=== PATIENT | female | born 1975 | race Caucasian/White ===

== ENCOUNTER 2017-05-08 02:00 | Emergency (ER) | payer OTHER ==
[~2017-05-08 02:00] MED LIST: CEPH500T PO; PRED20TA PO; VALA10005 PO
[2017-05-08] MEDS ORDERED: KETOROLAC 60 MG/2 ML VIAL. IM ONE (03:52)
[2017-05-08] MEDS ORDERED: PHENAZOPYRIDINE 200 MG TABLET. ONE (03:52)
[2017-05-08] MEDS: KETOROLAC 60 MG/2 ML VIAL. IM ONE (03:53)
[2017-05-08] MEDS: PHENAZOPYRIDINE 200 MG TABLET. PO ONE (03:53)
[2017-05-08 03:54] LABS: BILIRUBIN,URINE NEG (NEG); CLARITY,URINE CLEAR; COLOR,URINE YELLOW; GLUCOSE,URINE NEG (NEG); NITRITE,URINE NEG (NEG); UROBILINOGEN,URINE 0.2 mg/dL (0.2 mg/dL)
[2017-05-08 03:55] LABS: BACTERIA,URINE FEW /HPF (0-FEW); RBC,URINE 0 /HPF (0-2); SQUAMOUS EPITHELIAL CELL,UR FEW /LPF; U PREG PATIENT NEGATIVE (NEG); WBC,URINE OCC /HPF (0-4)
--- NOTE | 2017-05-08 05:03 | PHYS DOC ---
General Chief Complaint: FLANK PAIN Stated Complaint: ABD/BACK PAIN Time Seen by MD: 04:42 Source: patient Exam Limitations: no limitations Problems: History of Present Illness Initial Comments Patient is a 41-year-old female who comes in the ED complaining of lower abdominal and bilateral flank pain. Patient states she's had some urinary frequency and hesitancy, she denies any trauma or strenuous activity. No leg weakness no saddle anesthesia and no incontinence. No midline back pain no fever chills sweats or myalgias. Symptoms described as moderate worse with certain movements improved with rest. Patient drove her roommates car here and refuses medications that will not allow her to drive home. She had a very prolonged ED course as a critical patient consumed the ED staff for a considerable length of time. Most of the history was initially obtained by the nurse around her and I ordered studies and medications initially from the trauma room as I managed a critical patient. Timing/Duration: 24 hours Severity: moderate Modifying Factors: worse with movement, improves with rest Associated Symptoms: other Allergies: Coded Allergies: No Known Drug Allergies (Unverified , 07/11/16) Past Medical History Medical History: no pertinent history Surgical History: noncontributory Social History Smoker: cigarettes Alcohol: none Drugs: none Review of Systems Constitutional: denies chills, denies diaphoresis, denies fever, denies malaise Respiratory: denies cough, denies shortness of breath Cardiovascular: denies chest pain, denies palpitations Gastrointestinal: see HPI, denies diarrhea, denies nausea, denies vomiting Genitourinary: see HPI Musculoskeletal: see HPI Psychiatric/Neurological: denies headache, denies numbness, denies paresthesia , denies weakness Hematologic/Lymphatic: denies blood clots, denies easy bleeding, denies easy bruising Physical Exam General Appearance: WD/WN, mild distress Ear, Nose, Throat: hearing grossly normal, normal ENT inspection Neck: non-tender Respiratory: normal breath sounds, no respiratory distress Cardiovascular: normal peripheral pulses, regular rate, rhythm Gastrointestinal: soft (mild suprapubic tenderness no rebound guarding or masses negative Johnson negative McBurney bowel sounds normal) Rectal: deferred Back: no vertebral tenderness, CVA tenderness (R), CVA tenderness (L) Extremities: non-tender, normal inspection 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 Pt remains with severe flank pain, pt agrees to lab eval and CT but insists she has roommate's car and must drive home so refuses pain meds other than that already given, toradol/pyridium. Pt with very prolonged ED course initially due to my delay, now due to need for further lab/CT eval. PATIENT: KJ HYATT ACCOUNT: [id number] : 1975 LOCATION: ER AGE: 41 SEX: F EXAM STATUS: REG ER ORD. PHYSICIAN: VIRA WALKER DO REASON: flank pain r/o stone PROCEDURE: CT ABDOMEN PELVIS WO CONTRAST CT abdomen and pelvis without contrast HISTORY: Bilateral flank pain. TECHNIQUE: Helical noncontrast CT imaging of the abdomen and pelvis was acquired. Abdomen findings: Segment 4 the liver demonstrates a 4 mm indeterminate hypodense lesion too small to characterize. Lung bases and bones are unremarkable. Small sliding hiatal hernia gastroesophageal junction and gastric cardia. Gallbladder, pancreas, kidneys, adrenals and spleen are unremarkable. No nephroureterolithiasis, hydronephrosis or perinephric stranding. GI tract including the appendix demonstrates no obstruction or inflammatory change. No abdominal fluid. Pelvis findings: Contraceptive fallopian tubal occlusive devices. No bladder calculi. Trace dependent pelvic fluid. Rectum and bones are unremarkable. IMPRESSION: 1. No acute process. Appendix is negative. No nephroureterolithiasis or hydronephrosis. 2. Small hiatal hernia. Exposure: One or more of the following individualized dose reduction techniques were utilized for this examination: 1. Automated exposure control 2. Adjustment of the mA and/or kV according to patient size 3. Use of iterative reconstruction technique Electronically signed by: Moncho Duckworth MD (05/08/2017 5:18 AM) [place] [id number] DICTATED AND SIGNED BY: MONCHO DUCKWORTH MD DATE: 05/08/17 0510 CC: PATRICIA VELAZQUEZ; VIRA WALKER DO ~ negative labs unremarkable. Patient was advised to stop smoking. She expressed agreement and understanding with treatment plan see departure for instructions. Departure Time of Disposition: 05:59 Disposition: 01 HOME, SELF-CARE Diagnosis: Back pain NOS Condition: STABLE Patient Instructions: Back Pain, Adult, Stdl-ve-Oxov Additional Instructions: Off work thru Tuesday, note given. Rest, keep activity to "pain-free." OTC ibuprofen for baseline pain. A tylenol #3 start pack was dispensed, take 1 every 6 hours for severe pain. Rx: norco 5mg #15 Follow up with Patricia Stern in 1-2 days for recheck. Return to ED with new or changing symptoms. VIRA WALKER DO May 08, 2017 05:03
[2017-05-08] MEDS ORDERED: IV NORMAL SALINE 50ML 50 ML ONE (05:04)
[2017-05-08] MEDS ORDERED: cefTRIAXone SODIUM 1 GM VIAL IV ONE (05:04)
[2017-05-08 05:21] LABS: BASO % 0 % (0-3); EOS # 0.3 x10^3/uL (0.0-0.7); EOS % 3 % (0-3); HEMATOCRIT 41.9 % (36.0-47.0); HEMOGLOBIN 14.6 g/dL (12.0-15.5); LYMPH % 29 % (24-48); MEAN CORPUSCULAR HEMOGLOBIN 32 pg (25-35); MEAN CORPUSCULAR HGB CONC 35 g/dL (31-37); MEAN CORPUSCULAR VOLUME 91 fL (79-100); MONO # 0.5 x10^3/uL (0.0-1.1); MONO % 5 % (0-9); NEUT # 6.5 x10^3uL (1.8-7.7); NEUT % 62 % (31-73); PLATELET COUNT 205 x10^3/uL (140-400); RED BLOOD COUNT 4.61 x10^6/uL (3.50-5.40); RED CELL DISTRIBUTION WIDTH 13.3 % (11.5-14.5); WHITE BLOOD COUNT 10.5 x10^3/uL (4.0-11.0)
--- NOTE | 2017-05-08 05:21 | RAD ---
CT abdomen and pelvis without contrast HISTORY: Bilateral flank pain. TECHNIQUE: Helical noncontrast CT imaging of the abdomen and pelvis was acquired. Abdomen findings: Segment 4 the liver demonstrates a 4 mm indeterminate hypodense lesion too small to characterize. Lung bases and bones are unremarkable. Small sliding hiatal hernia gastroesophageal junction and gastric cardia. Gallbladder, pancreas, kidneys, adrenals and spleen are unremarkable. No nephroureterolithiasis, hydronephrosis or perinephric stranding. GI tract including the appendix demonstrates no obstruction or inflammatory change. No abdominal fluid. Pelvis findings: Contraceptive fallopian tubal occlusive devices. No bladder calculi. Trace dependent pelvic fluid. Rectum and bones are unremarkable. IMPRESSION: 1. No acute process. Appendix is negative. No nephroureterolithiasis or hydronephrosis. 2. Small hiatal hernia. Exposure: One or more of the following individualized dose reduction techniques were utilized for this examination: 1. Automated exposure control 2. Adjustment of the mA and/or kV according to patient size 3. Use of iterative reconstruction technique Electronically signed by: Aron Martinez MD (05/08/2017 5:18 AM) [facility]
[2017-05-08 05:52] LABS: ALBUMIN 4.3 g/dL (3.4-5.0); CALCIUM 9.3 mg/dL (8.5-10.1); CREATININE 0.7 mg/dL (0.6-1.0); DIRECT BILIRUBIN 0.2 mg/dL (0.0-0.2); GFR 93.2; POTASSIUM 3.9 mmol/L (3.5-5.1); TOTAL BILIRUBIN 0.7 mg/dL (0.2-1.0); TOTAL PROTEIN 7.5 g/dL (6.4-8.2)
[2017-05-08] MEDS ORDERED: HYDR-971 PO (05:59)
[2017-05-08] MEDS: ACETAMINOPHEN/CODEINE 300/30MG 4TABLET STARTPACK. PO ONE (06:11)
[2017-05-08 06:13] VITALS: BP 129/71
== END 2017-05-08 06:13 | disposition home or self-care (01) ==
LOC: ER 02:00
DX: M54.89 Other dorsalgia (principal); R10.31 Right lower quadrant pain; R10.32 Left lower quadrant pain; F17.210 Nicotine dependence, cigarettes, uncomplicated
CPT/HCPCS: 36415; 74176; 80048; 80076; 81001; 81025; 83690; 85025; 96365; 96372; J0696; J1885; 99285-25

== ENCOUNTER → 2017-05-11 | Outpatient (CLI) | payer OTHER ==
[2017-05-08 06:13] VITALS: BP 129/71
[~2017-05-11] MED LIST changes: +HYDR-971 PO
--- NOTE | 2017-05-11 09:31 | RAD ---
Indication low back pain. AP and lateral views of the lumbar spine were obtained as well as a coned view and 2 oblique views. Vertebral height alignment and disc spaces are unremarkable. No acute bony finding is seen. There is a possible unilateral pars defect at L5. The finding is not certain. IMPRESSION: No acute or significant finding seen on plain films of the lumbar spine
== END | disposition home or self-care (01) ==
LOC: DXRADRC 09:17
PROVIDERS: ATTEND Physician Assistant Medical
DX: M54.5 Low back pain (principal)
CPT/HCPCS: 72110

== ENCOUNTER 2019-03-30 22:08 | Emergency (ER) | payer MEDICAID, OTHER ==
[~2019-03-30] VITALS: Ht 167.6 cm; Wt 81.6 kg
[~2019-03-30 22:08] MED LIST changes: +HYDR-3165 PO; -HYDR-971 PO
--- NOTE | 2019-03-30 22:13 | ED.ADGEN ---
Past History Past Medical History: No Pertinent History Past Surgical History: Tonsillectomy Alcohol Use: None Drug Use: None Adult General Chief Complaint Chief Complaint "Everyone in the house is sick.. I get sick.. By sister's kids sick.. She sick.. Everyone sick since beginning school... " Got a sore throat, ears hurt on the left..." Sometimes ear makes me feel dizzy...'" HPI HPI Patient is a 43 year old female who presents with above complaints of sore throat, ear ache and dizzy x 4 days. Follow-up fasting numbers are sick with upper respiratory infection. No recent travel. Patient does smoke. No history immunosuppression. Review of Systems Review of Systems Constitutional: Denies fever or chills [] Eyes: Denies change in visual acuity, redness, or eye pain [] HENT: Complains of nasal congestion, sore throat []and left ear pain Respiratory: Denies cough or shortness of breath [] Cardiovascular: No additional information not addressed in HPI [] GI: Denies abdominal pain, nausea, vomiting, bloody stools or diarrhea [] : Denies dysuria or hematuria [] Musculoskeletal: Denies back pain or joint pain [] Integument: Denies rash or skin lesions [] Neurologic: Denies headache, focal weakness or sensory changes [] Endocrine: Denies polyuria or polydipsia [] All other systems were reviewed and found to be within normal limits, except as documented in this note. Family History Family History Multiple family members ill with upper respiratory infection Current Medications Current Medications Current Medications Medications (Trade) Dose Ordered Sig/[facility] Start Time Stop Time Status Last Admin Dose Admin Ibuprofen (Motrin) 600 mg 1X ONCE 03/30/19 22:30 03/30/19 22:31 DC 03/30/19 22:34 600 MG Prednisone (Prednisone) 50 mg 1X ONCE 03/30/19 22:30 03/30/19 22:31 DC 03/30/19 22:34 50 MG Allergies Allergies Allergies Coded Allergies Type Severity Reaction Last Updated Verified No Known Drug Allergies 07/11/16 No Physical Exam Physical Exam Constitutional: Well developed, well nourished, no acute distress, non-toxic appearance. [] HENT: Normocephalic, atraumatic, bilateral external ears normal, TM on left has fluid, oropharynx moist, injected pharynx no oral exudates, nose swollen turbinates and clear rhinorrhea] Eyes: PERRLA, EOMI, conjunctiva normal, no discharge. [] Neck: Normal range of motion, no tenderness, supple, no stridor. [] Cardiovascular:Heart rate regular rhythm, no murmur [] Lungs & Thorax: Bilateral breath sounds clear to auscultation [] Abdomen: Bowel sounds normal, soft, no tenderness, no masses, no pulsatile masses. [] Skin: Warm, dry, no erythema, no rash. [] Back: No tenderness, no CVA tenderness. [] Extremities: No tenderness, no cyanosis, no clubbing, ROM intact, no edema. [] Neurologic: Alert and oriented X 3, normal motor function, normal sensory function, no focal deficits noted. [] Psychologic: Affect anxious, judgement normal, mood normal. [] Current Patient Data Vital Signs Vital Signs Date Time Temp Pulse Resp B/P (MAP) Pulse Ox O2 Delivery O2 Flow Rate FiO2 03/30/19 22:25 98.1 71 18 96 Room Air Lab Results Laboratory Tests Test 03/30/19 22:30 03/30/19 22:40 03/30/19 22:56 Group A Streptococcus Rapid Negative (NEGATIVE) Urine Collection Type Unknown Urine Color Yellow Urine Clarity Clear Urine pH 5.5 Urine Specific [place] 1.025 Urine Protein Neg (NEG-TRACE) Urine Glucose (UA) Neg mg/dL (NEG) Urine Ketones (Stick) 15 mg/dL (NEG) Urine Blood Neg (NEG) Urine Nitrite Neg (NEG) Urine Bilirubin Neg (NEG) Urine Urobilinogen Dipstick 1 mg/dL (0.2 mg/dL) Urine Leukocyte Esterase Neg (NEG) Urine RBC 0 /HPF (0-2) Urine WBC 0 /HPF (0-4) Urine Squamous Epithelial Cells Mod /LPF Urine Bacteria Few /HPF (0-FEW) Urine Mucus Marked /LPF Urine Opiates Screen Neg (NEG) Urine Methadone Screen Neg (NEG) Urine Barbiturates Neg (NEG) Urine Phencyclidine Screen Neg (NEG) Urine Amphetamine/Methamphetamine Pos (NEG) Urine Benzodiazepines Screen Neg (NEG) Urine Cocaine Screen Neg (NEG) Urine Cannabinoids Screen Neg (NEG) Urine Ethyl Alcohol Neg (NEG) POC Urine HCG, Qualitative hcg negative (Negative) EKG EKG [] Radiology/Procedures Radiology/Procedures [] Course & Med Decision Making Course & Med Decision Making Pertinent Labs and Imaging studies reviewed. (See chart for details) Gargle with Listerine 4 times a day. Take Tylenol or ibuprofen for discomfort. Liquid up ibuprofen may offer some topical relief to sore throat. Take Benadryl 25 mg to 50 mg 4 times a day for congestion and drainage. Stop smoking. Return i f Any concerns [] Final Impression Final Impression 1. Upper respiratory infection[] 2. Viral Syndrome Dragon Disclaimer Dragon Disclaimer This electronic medical record was generated, in whole or in part, using a voice recognition dictation system. Dragon Disclaimer This chart was dictated in whole or in part using Voice Recognition software in a busy, high-work load, and often noisy Emergency Department environment. It may contain unintended and wholly unrecognized errors or omissions. ALL CARDENAS MD Mar 30, 2019 22:13
[2019-03-30 22:25] VITALS: BP 135/79
[2019-03-30] MEDS ORDERED: predniSONE 10 MG TABLET PO ONE (22:30)
[2019-03-30] MEDS ORDERED: IBUPROFEN 600 MG TABLET. PO ONE (22:30)
[2019-03-30 23:13] LABS: AMPHETAMINE/METHAMPHETAMINE POS (NEG); BARBITURATES NEG (NEG); BENZODIAZEPINES NEG (NEG); CANNABINOIDS NEG (NEG); COCAINE NEG (NEG); METHADONE NEG (NEG); OPIATES NEG (NEG); PHENCYCLIDINE NEG (NEG)
[2019-03-30 23:23] LABS: CLARITY,URINE CLEAR; COLOR,URINE YELLOW; GLUCOSE,URINE NEG (NEG)
[2019-03-30 23:24] LABS: BACTERIA,URINE FEW /HPF (0-FEW); BILIRUBIN,URINE NEG (NEG); NITRITE,URINE NEG (NEG); RBC,URINE 0 /HPF (0-2); SQUAMOUS EPITHELIAL CELL,UR MOD /LPF; UROBILINOGEN,URINE 1 mg/dL (0.2 mg/dL); WBC,URINE 0 /HPF (0-4)
== END 2019-03-30 23:25 | disposition home or self-care (01) ==
LOC: ER 22:08
DX: B34.9 Viral infection, unspecified (principal); J06.9 Acute upper respiratory infection, unspecified; R42 Dizziness and giddiness; Z90.89 Acquired absence of other organs
CPT/HCPCS: 36415; 80307; 81001; 81025; 87070; 87880; 99284; J7512

== ENCOUNTER 2020-06-14 12:51 | Emergency (ER) | payer MEDICAID ==
[~2020-06-14] VITALS: Ht 165.1 cm; Wt 79.5 kg
--- NOTE | 2020-06-14 13:50 | RAD ---
EXAM: CT HEAD WITHOUT CONTRAST. HISTORY: Headache, right weakness. TECHNIQUE: Computed tomography of the head was performed without intravenous contrast. One or more of the following individualized dose reduction techniques were utilized for this examination: 1. Automated exposure control. 2. Adjustment of the mA and/or kV according to patient size. 3. Use of iterative reconstruction technique. COMPARISON: None. FINDINGS: There is no intracranial hemorrhage. A focus of hypoattenuation within the left posterior frontal white matter measures 1.3 cm. The ventricles are normal in size and position. The visualized paranasal sinuses appear clear. The orbits are unremarkable. The temporal bones are unremarkable. The calvarium reveals no suspicious lesions. IMPRESSION: 1. A 1.3 cm hypoattenuating lesion in the left posterior frontal white matter may represent a subacute/chronic infarct, or possibly a demyelinating lesion. MRI brain with and without contrast is recommended if the diagnosis remains unclear. Electronically signed by: Bouchra Marquez MD (06/14/2020 1:47 PM) [id number]
[2020-06-14 13:52] LABS: BASO % 1 % (0-3); EOS # 0.1 x10^3/uL (0.0-0.7); EOS % 2 % (0-3); HEMATOCRIT 44.8 % (36.0-47.0); LYMPH # 2.1 x10^3/uL (1.0-4.8); LYMPH % 25 % (24-48); MEAN CORPUSCULAR HEMOGLOBIN 31 pg (25-35); MEAN CORPUSCULAR HGB CONC 34 g/dL (31-37); MEAN CORPUSCULAR VOLUME 93 fL (79-100); MONO # 0.7 x10^3/uL (0.0-1.1); MONO % 8 % (0-9); NEUT # 5.4 x10^3uL (1.8-7.7); NEUT % 65 % (31-73); PLATELET COUNT 175 x10^3/uL (140-400); RED BLOOD COUNT 4.81 x10^6/uL (3.50-5.40); RED CELL DISTRIBUTION WIDTH 13.2 % (11.5-14.5); WHITE BLOOD COUNT 8.4 x10^3/uL (4.0-11.0)
[2020-06-14 13:55] LABS: CALCIUM 9.4 mg/dL (8.5-10.1); CREATININE 0.8 mg/dL (0.6-1.0); GFR 78.7; POTASSIUM 3.7 mmol/L (3.5-5.1)
[2020-06-14 14:01] LABS: ALBUMIN 4.2 g/dL (3.4-5.0); ALBUMIN/GLOBULIN RATIO 1.4 (1.0-1.7); TOTAL BILIRUBIN 0.9 mg/dL (0.2-1.0); TOTAL PROTEIN 7.3 g/dL (6.4-8.2)
[2020-06-14 14:04] LABS: BACTERIA,URINE 0 /HPF (0-FEW); BILIRUBIN,URINE NEG (NEG); CLARITY,URINE CLEAR; COLOR,URINE YELLOW; GLUCOSE,URINE NEG (NEG); NITRITE,URINE NEG (NEG); RBC,URINE RARE /HPF (0-2); SQUAMOUS EPITHELIAL CELL,UR OCC /LPF; UROBILINOGEN,URINE 0.2 mg/dL (0.2 mg/dL); WBC,URINE 0 /HPF (0-4)
--- NOTE | 2020-06-14 14:58 | EKG ---
[facility] ED [facility] [place] [id number] Test Date: 2020-06-14 Test Time: 13:52:10 Pat Name: KJ HYATT Department: Room: Gender: F Telephone Order Supervisor: : 1975 Requested By: MAIA HAWLEY Order Number: [id number] Reading MD: Measurements Intervals [place] Rate: 76 P: 54 PA: 134 QRS: 77 QRSD: 78 T: 36 QT: 368 QTc: 413 Interpretive Statements SINUS ARRHYTHMIA OTHERWISE NORMAL ECG RI6.02 No previous ECG available for comparison
--- NOTE | 2020-06-14 16:09 | PHYS DOC ---
Past History Past Medical History: No Pertinent History Past Surgical History: Tonsillectomy Alcohol Use: None Drug Use: None General Adult EDM: Chief Complaint: headache HPI: HPI: Patient is a 44-year-old female who presented to ER today for evaluation of headache, tingling and numbness sensation on the right side off and on for 4 days. Patient denies any injury. Patient denies any chest pain, no abdominal pain, no nausea vomiting. Patient denies any cough or fever. Patient also noted the right side of her face looked different this morning when she woke up. Review of Systems: Review of Systems: Constitutional: Denies fever or chills Eyes: Denies change in visual acuity HENT: Denies nasal congestion or sore throat Respiratory: Denies cough or shortness of breath Cardiovascular: Denies chest pain or edema GI: Denies abdominal pain, nausea, vomiting, bloody stools or diarrhea : Denies dysuria Musculoskeletal: Denies back pain or joint pain Integument: Denies rash Neurologic: Positive for headache, right side tingling and numbness sensation Endocrine: Denies polyuria or polydipsia Lymphatic: Denies swollen glands Psychiatric: Denies depression or anxiety Allergies: Allergies: Allergies Coded Allergies Type Severity Reaction Last Updated Verified No Known Drug Allergies 07/11/16 No Physical Exam: PE: Constitutional: Well developed, well nourished, no acute distress, non-toxic a ppearance. [] HENT: Normocephalic, atraumatic, bilateral external ears normal, oropharynx moist, no oral exudates, nose normal. [] Eyes: PERRLA, EOMI, conjunctiva normal, no discharge. [] Neck: Normal range of motion, no tenderness, supple, no stridor. [] Cardiovascular:Heart rate regular rhythm, no murmur [] Lungs & Thorax: Bilateral breath sounds clear to auscultation [] Abdomen: Bowel sounds normal, soft, no tenderness, no masses, no pulsatile masses. [] Skin: Warm, dry, no erythema, no rash. [] Back: No tenderness, no CVA tenderness. [] Extremities: No tenderness, no cyanosis, no clubbing, ROM intact, no edema. [] Neurologic: Alert and oriented X 3, normal speech, normal motor function, normal sensory function, no focal deficits, no obvious facial droop. Psychologic: Affect normal, judgement normal, mood normal. [] Current Patient Data: Labs: Laboratory Tests Test 06/14/20 13:00 06/14/20 13:04 06/14/20 13:20 06/14/20 13:26 White Blood Count 8.4 x10^3/uL (4.0-11.0) Red Blood Count 4.81 x10^6/uL (3.50-5.40) Hemoglobin 15.0 g/dL (12.0-15.5) Hematocrit 44.8 % (36.0-47.0) Mean Corpuscular Volume 93 fL (79-100) Mean Corpuscular Hemoglobin 31 pg (25-35) Mean Corpuscular Hemoglobin Concent 34 g/dL (31-37) Red Cell Distribution Width 13.2 % (11.5-14.5) Platelet Count 175 x10^3/uL (140-400) Neutrophils (%) (Auto) 65 % (31-73) Lymphocytes (%) (Auto) 25 % (24-48) Monocytes (%) (Auto) 8 % (0-9) Eosinophils (%) (Auto) 2 % (0-3) Basophils (%) (Auto) 1 % (0-3) Neutrophils # (Auto) 5.4 x10^3uL (1.8-7.7) Lymphocytes # (Auto) 2.1 x10^3/uL (1.0-4.8) Monocytes # (Auto) 0.7 x10^3/uL (0.0-1.1) Eosinophils # (Auto) 0.1 x10^3/uL (0.0-0.7) Basophils # (Auto) 0.0 x10^3/uL (0.0-0.2) Sodium Level 138 mmol/L (136-145) Potassium Level 3.7 mmol/L (3.5-5.1) Chloride Level 104 mmol/L (98-107) Carbon Dioxide Level 24 mmol/L (21-32) Anion Gap 10 (6-14) Blood Urea Nitrogen 13 mg/dL (7-20) Creatinine 0.8 mg/dL (0.6-1.0) Estimated GFR (Cockcroft-Gault) 78.7 BUN/Creatinine Ratio 16 (6-20) Glucose Level 104 mg/dL (70-99) H Calcium Level 9.4 mg/dL (8.5-10.1) Total Bilirubin 0.9 mg/dL (0.2-1.0) Aspartate Amino Transferase (AST) 16 U/L (15-37) Alanine Aminotransferase (ALT) 17 U/L (14-59) Alkaline Phosphatase 58 U/L (46-116) Troponin I Quantitative < 0.017 ng/mL (0-0.055) Total Protein 7.3 g/dL (6.4-8.2) Albumin 4.2 g/dL (3.4-5.0) Albumin/Globulin Ratio 1.4 (1.0-1.7) Glucose (Fingerstick) 104 mg/dL (70-99) H Urine Collection Type Unknown Urine Color Yellow Urine Clarity Clear Urine pH 5.5 Urine Specific [place] 1.025 Urine Protein Neg (NEG-TRACE) Urine Glucose (UA) Neg mg/dL (NEG) Urine Ketones (Stick) Neg mg/dL (NEG) Urine Blood Trace (NEG) Urine Nitrite Neg (NEG) Urine Bilirubin Neg (NEG) Urine Urobilinogen Dipstick 0.2 mg/dL (0.2 mg/dL) Urine Leukocyte Esterase Neg (NEG) Urine RBC Rare /HPF (0-2) Urine WBC 0 /HPF (0-4) Urine Squamous Epithelial Cells Occ /LPF Urine Bacteria 0 /HPF (0-FEW) POC Urine HCG, Qualitative hcg negative (Negative) Vital Signs: Vital Signs Date Time Temp Pulse Resp B/P (MAP) Pulse Ox O2 Delivery O2 Flow Rate FiO2 06/14/20 14:27 63 20 104/63 (77) 100 Room Air 06/14/20 13:00 98.9 EKG: EKG: EKG was done at 1352, heart rate of 76 bpm, sinus rhythm, no ST segment elevation. [] Radiology/Procedures: Radiology/Procedures: [address] [address] IMAGING REPORT Signed PATIENT: KJ HYATT ACCOUNT: [id number] : 1975 LOCATION: ER AGE: 44 SEX: F EXAM STATUS: REG ER ORD. PHYSICIAN: MAIA HAWLEY DO REASON: headache, right side weakness PROCEDURE: CT HEAD WO CONTRAST EXAM: CT HEAD WITHOUT CONTRAST. HISTORY: Headache, right weakness. TECHNIQUE: Computed tomography of the head was performed without intravenous contrast. One or more of the following individualized dose reduction techniques were utilized for this examination: 1. Automated exposure control. 2. Adjustment of the mA and/or kV according to patient size. 3. Use of iterative reconstruction technique. COMPARISON: None. FINDINGS: There is no intracranial hemorrhage. A focus of hypoattenuation within the left posterior frontal white matter measures 1.3 cm. The ventricles are normal in size and position. The visualized paranasal sinuses appear clear. The orbits are unremarkable. The temporal bones are unremarkable. The calvarium reveals no suspicious lesions. IMPRESSION: 1. A 1.3 cm hypoattenuating lesion in the left posterior frontal white matter may represent a subacute/chronic infarct, or possibly a demyelinating lesion. MRI brain with and without contrast is recommended if the diagnosis remains unclear. Electronically signed by: Bouchra Marquez MD (06/14/2020 1:47 PM) [id number] DICTATED AND SIGNED BY: KAE MARQUEZ MD DATE: 06/14/20 1347 CC: NAVI DUVAL MD; MAIA HAWLEY DO ~MTH0 0 Heart Score: Risk Factors: Risk Factors: DM, Current or recent (<one month) smoker, HTN, HLP, family history of CAD, obesity. Risk Scores: Score 0 - 3: 2.5% MACE over next 6 weeks - Discharge Home Score 4 - 6: 20.3% MACE over next 6 weeks - Admit for Clinical Observation Score 7 - 10: 72.7% MACE over next 6 weeks - Early Invasive Strategies Course & Med Decision Making: Course & Med Decision Making Pertinent Labs and Imaging studies reviewed. (See chart for details) Patient is a 44-year-old female who presented to ER for evaluation of headache and intermittent episodes of tingling sensation and numbness on the right side. CT scan of her head show 1.3 cm hypoattenuation area on the left posterior frontal area consistent with subacute or chronic infarct or demyelinating lesion. Patient will need MRI of her brain with with IV contrast for further evaluation. There is no MRI at this hospital, patient will be transferred to [facility] for further evaluation and treatment, discussed with Dr. Ellis who agreed to accept the patient. Justo Disclaimer: Justo Disclaimer: This electronic medical record was generated, in whole or in part, using a voice recognition dictation system. Departure Departure: Impression: Primary Impression: Headache Additional Impression: Numbness on right side Disposition: 02 DC/TRF OTHER SHORT TERM HOS (transferred to [facility], accepted by Dr. Ellis. ) Condition: IMPROVED Referrals: NAVI DUVAL MD (PCP) MAIA HAWLEY DO Jun 14, 2020 16:09
[2020-06-14 18:27] VITALS: BP 124/85
== END 2020-06-14 19:00 | disposition short-term general hospital (02) ==
LOC: ER 12:51
DX: R51.9 Headache, unspecified (principal); R20.0 Anesthesia of skin; Z90.89 Acquired absence of other organs
CPT/HCPCS: 36415; 70450; 80053; 81001; 81025; 82947; 84484; 85025; 93005; 99285

== ENCOUNTER 2020-12-19 17:22 | Emergency (ER) | payer MEDICAID ==
[~2020-12-19] VITALS: Ht 165.1 cm; Wt 79.5 kg
[2020-12-19] MEDS ORDERED: IBUPROFEN 600 MG TABLET. PO ONE (18:00)
[2020-12-19] MEDS ORDERED: HYDR-2155 PO (18:07)
--- NOTE | 2020-12-19 18:07 | PHYS DOC ---
Past History Past Medical History: Depression, Migraines Past Surgical History: Tonsillectomy Alcohol Use: None Drug Use: None General Adult EDM: Chief Complaint: MECHANICAL FALL HPI: HPI: Patient is a 45-year-old female who presents with left foot and right knee pain after a fall last night. Patient states that she was going down some concrete steps when she skipped the last stair and tripped and fell onto her knee and twisted her ankle. Patient denies taking anything for pain. Patient reports pain is worse with ambulation. Range of motion is intact but produces pain. Patient is history of migraines. Review of Systems: Review of Systems: Respiratory: Denies cough or shortness of breath Cardiovascular: Denies chest pain or edema Musculoskeletal: Reports left foot pain, right knee abrasion Integument: Reports abrasion to right knee, swelling to left foot Allergies: Allergies: Allergies Coded Allergies Type Severity Reaction Last Updated Verified No Known Drug Allergies 07/11/16 No Physical Exam: PE: Constitutional: Well developed, well nourished, no acute distress, non-toxic appearance. [] Cardiovascular:Heart rate regular rhythm, no murmur [] Lungs & Thorax: Bilateral breath sounds clear to auscultation [] Skin: Abrasion to left knee Back: No tenderness, no CVA tenderness. [] Extremities: Left foot tenderness, ROM intact, no edema. [] Neurologic: Alert and oriented X 3, normal motor function, normal sensory function, no focal deficits noted. [] Current Patient Data: Vital Signs: Vital Signs Date Time Temp Pulse Resp B/P (MAP) Pulse Ox O2 Delivery O2 Flow Rate FiO2 12/19/20 17:39 97.7 80 18 104/75 (85) 96 Room Air EKG: EKG: [] Radiology/Procedures: Radiology/Procedures: []XAM: XR FOOT_LEFT 3 VIEWS, XR EXAM OF ANKLE_LEFT 3V, XR KNEE 4 VIEWS WITH PATELLA_RT 12/19/2020 6:00 PM CLINICAL INDICATION: Fell last night, left foot pain, right knee pain, left ankle pain COMPARISON: None FINDINGS: Left foot: 3 views are obtained. No acute fracture. Alignment is normal. Joint spaces are maintained. No soft tissue abnormality. Left ankle: 3 views were obtained. No acute fracture. Ankle mortise is symmetric and talar dome is intact. No soft tissue abnormality. Right knee: 4 views were obtained. No acute fracture. Alignment is normal. Joint spaces are maintained. No joint effusion or soft tissue abnormality. IMPRESSION: Normal radiographs of the left foot and ankle, and right knee. Heart Score: C/O Chest Pain: No Risk Factors: Risk Factors: DM, Current or recent (<one month) smoker, HTN, HLP, family history of CAD, obesity. Risk Scores: Score 0 - 3: 2.5% MACE over next 6 weeks - Discharge Home Score 4 - 6: 20.3% MACE over next 6 weeks - Admit for Clinical Observation Score 7 - 10: 72.7% MACE over next 6 weeks - Early Invasive Strategies Course & Med Decision Making: Course & Med Decision Making Pertinent Labs and Imaging studies reviewed. (See chart for details) [] 45-year-old female presents with left foot's and right knee pain x-ray of left foot ordered to rule out fracture. Patient is also wanting an x-ray of her right knee. Patient given ibuprofen. X-ray of left foot/ankle and right knee are negative for acute fractures. Patient given rice instructions and an ankle brace. Patient to take ibuprofen and Tylenol at home for discomfort. Patient is appreciative and okay with discharge plan. Dragon Disclaimer: KangaDo Disclaimer: This electronic medical record was generated, in whole or in part, using a voice recognition dictation system. Departure Departure: Impression: Primary Impression: Foot pain, left Disposition: 01 HOME / SELF CARE / HOMELESS Condition: STABLE Referrals: NAVI DUVAL MD (PCP) Patient Instructions: Foot Contusion Additional Instructions: Seen emergency room for left foot pain, right knee pain after a fall. X-ray of foot and knee both negative for fracture. Take ibuprofen at home for discomfort. Try and rest, use ice, and elevate to help with pain and swelling. Please follow-up with PCP for further management. Return to emergency room with worsening symptoms or concerns. EMERGENCY DEPARTMENT GENERAL DISCHARGE INSTRUCTIONS Thank you for coming to [facility] (ED) today and trusting us with you care. We trust that you had a positivie experience in our Emergency Department. If you wish to speak to the department management, you may call the director at [phone]. YOUR FOLLOW UP INSTRUCTIONS ARE FOLLOWS: 1. Do you have a private Doctor? If you do not have a private doctor, please ask for a resource list of physicians or clinics that may be able to assist you with follow up care. 2. The Emergency Physician has interpreted your x-rays. The X-Ray specialist w ill also review them. If there is a change in the findings, you will be notified in 48 hours when at all possible. 3. A lab test or culture has been done, your results will be reviewed and you will be notified if you need a change in treatment. ADDITIONAL INSTRUCTIONS AND INFORMATION: 1. Your care today has been supervised by a physician who is specially trained in emergency care. Many problems require more than one evaluation for a complete diagnosis and treatment. We recommend that you schedule your follow up appointment as recommended to ensure complete treatment of you illness or injury. If you are unable to obtain follow up care and continue to have a problem, or if your condition worsens, we recommend that you return to the ED. 2. We are not able to safely determine your condition over the phone nor are we able to give sound medical advice over the phone. For these safety reasons, if you call for medical advice we will ask you to come to the ED for further evaluation. 3. If you have any questions regarding these discharge instructions please call the ED at [phone]. SAFETY INFORMATION: In the interest of safety, wellness, and injury prevention; we encourage you to wear your sealbelt, if you smoke; quite smoking, and we encourage family to use a protective helmet for bicycling and other sporting events that present an increased risk for head injury. IF YOUR SYMPTOMS WORSEN OR NEW SYMPTOMS DEVELOP, OR YOU HAVE CONCERNS ABOUT YOUR CONDITION; OR IF YOUR CONDITION WORSENS WHILE YOU ARE WAITING FOR YOUR FOLLOW UP APPOINTMENT; EITHER CONTACT YOUR PRIMARY CARE DOCTOR, THE PHYSICIAN WHOSE NAME AND NUMBER YOU WERE GIVEN, OR RETURN TO THE ED IMMEDIATELY. Scripts Hydrocodone Bit/Acetaminophen (HYDROCODONE-APAP 5-325 ) 1 Each Tablet 1 TAB PO PRN Q6HRS PRN for PAIN for 3 Days, #12 TAB 0 Refills Prov: LOWELL STORY APRN 12/19/20 LOWELL STORY APRN December 19, 2020 18:07
--- NOTE | 2020-12-19 18:22 | RAD ---
EXAM: XR FOOT_LEFT 3 VIEWS, XR EXAM OF ANKLE_LEFT 3V, XR KNEE 4 VIEWS WITH PATELLA_RT 12/19/2020 6:00 PM CLINICAL INDICATION: Fell last night, left foot pain, right knee pain, left ankle pain COMPARISON: None FINDINGS: Left foot: 3 views are obtained. No acute fracture. Alignment is normal. Joint spaces are maintained. No soft tissue abnormality. Left ankle: 3 views were obtained. No acute fracture. Ankle mortise is symmetric and talar dome is in tact. No soft tissue abnormality. Right knee: 4 views were obtained. No acute fracture. Alignment is normal. Joint spaces are maintaine d. No joint effusion or soft tissue abnormality. IMPRESSION: Normal radiographs of the left foot and ankle, and right knee. Electronically signed by: Maria De Jesus Cruz MD (12/19/2020 6:20 PM) [id number]
[2020-12-19 19:06] VITALS: BP 110/70
== END 2020-12-19 19:10 | disposition home or self-care (01) ==
LOC: ER 17:22
DX: S80.211A Abrasion, right knee, initial encounter (principal); M79.672 Pain in left foot; W18.00XA Striking against unspecified object with subsequent fall, initial encounter; Y93.89 Activity, other specified; Y92.89 Other specified places as the place of occurrence of the external cause; Y99.8 Other external cause status
CPT/HCPCS: 73564; 73610; 73630; 99284-25